=== PATIENT | male | born 1945 | race Caucasian/White ===

== ENCOUNTER 2019-01-13 02:59 | Emergency (ER) | payer MEDICARE, OTHER ==
[2019-01-13] MEDS ORDERED: Cocaine 4% TOPICAL* 4 ML TOP.SOLN RIGHT NARE ONE (03:09)
--- OUTSIDE RECORDS SUMMARY | 2019-01-13 03:09 | XMS REPORT | Continuity of Care Document ---
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 Active Problems Provider Date Mitral valve disorder Kory Beckford M.D., [facility], Onset: 01/29/2013 FASNC Paroxysmal ventricular tachycardia Kory Beckford M.D., [facility], Onset: 04/21 FASNC Mitral leaflet abnormality Ica ECHO Schedule Onset: 04/15/2015 Dyspnea Kory Beckford M.D., [facility], Onset: 04/20/2015 FASNC Other hypertrophic cardiomyopathy Kory Beckford M.D., [facility], Onset: 2016 FASNC Dizziness and giddiness Kory Beckford M.D., [facility], Onset: 10/21/2016 FASNC Chest pain Kory Beckford M.D., [facility], Onset: 08/04/2017 FASNC Paroxysmal atrial fibrillation Kory Beckford M.D., [facility], Onset: 2017 FASNC Atrial fibrillation Kory Beckford M.D., [facility], Onset: 02/14/2018 FASNC Thoracic aortic ectasia Kory Beckford M.D., [facility], Onset: 02/14/2018 FASNC Social History Type Date Description Comments Sex Unknown Tobacco Use Start: Unknown Never Smoked Cigarettes Smoking Status Reviewed: 02/14/18 Never Smoked Cigarettes ETOH Use Denies alcohol use Tobacco Use Start: Unknown Patient has never smoked Recreational Drug Use Never Used Drugs Exercise Type/Frequency Exercises rarely Allergies, Adverse Reactions, Alerts Active Allergies Reaction Severity Comments Date Nitrostat bradycardia per pt 04/20/2015 Inactive Allergies NKDA 01/23/2013 Medications Active Medications SIG Qnty Indications Ordering Date Provider Amoxicillin take 4 tablets by 4tabs Kory Steen 06/01/2018 500mg mouth 1 hour Vianney Beckford, Tablets before dental SANDHYA, PHAM procedure Xarelto 1 by mouth every 90tabs Kory Enio 12/01/2017 20mg Tablets day Vianney Beckford, SANDHYA, PHAM Magnesium Oxide -MG 1 by mouth every 90tabs Kory Steen 03/14/2017 Supplement day Vianney Beckford, 250mg SANDHYA, PHAM Tablets Toprol XL 1 by mouth every 90tabs Koryjulia Steen 03/13/2017 50mg Tablets day Vianney Beckford, ER 24HR PHAM ARTHUR Atorvastatin Calcium 1 by mouth every 90tabs Unknown 06/05/2013 day 10mg Tablets Potassium Chloride ER 2 by mouth every Unknown day 10Meq Tablets ER Medications Administered in Office Medication SIG Qnty Indications Ordering Provider Date Inj, Regadenoson, 0.1 MG Kory Enio Beckford M.D., 09/11/2017 Injection PHAM ARTHUR Technetium TC 99M Kory Beckford M.D., 09/11/2017 Tetrofosmin, Per Unit Dose PHAM ARTHUR Up To 40 Millicuries Injection Inj, Regadenoson, 0.1 MG Jalen Zhu M.D. 05/08/2015 Injection Inj, Regadenoson, 0.1 MG ÁNGEL Leonard 05/08/2015 Injection Technetium TC 99M Jalen Zhu M.D. 05/08/2015 Tetrofosmin, Per Unit Dose Up To 40 Millicuries Injection Technetium TC 99M ÁNGEL Leonard 05/08/2015 Tetrofosmin, Per Unit Dose Up To 40 Millicuries Injection Immunizations Description No Information Available Vital Signs Date Vital Result Comment 02/14/2018 1:47pm Height 64.25 inches 5'4.25" Weight 182.00 lb Heart Rate 68 /min BP Systolic Sitting 124 mmHg lue reg cuff BP Diastolic Sitting 80 mmHg lue reg cuff BP Systolic Standing 118 mmHg lue reg cuff BP Diastolic Standing 78 mmHg lue reg cuff BMI (Body Mass Index) 31.0 kg/m2 Ejection Fraction 65-70% echo. 07/10/17 01/23/2018 1:05pm Height 64.25 inches 5'4.25" Weight 182.00 lb Heart Rate 68 /min BP Systolic Sitting 124 mmHg reg adult cuff left arm BP Diastolic Sitting 84 mmHg reg adult cuff left arm BMI (Body Mass Index) 31.0 kg/m2 Ejection Fraction 50-55% 12-08-2017 Results Description No Information Available Procedures Date Code Description Status 10/19/2018 75564 Interrogation Implant Cardiovasc Monitor System Incl Completed Analysis Int 10/19/2018 41120 Interrogation Implant Cardiovasc Monitor System Incl Completed Analysis Int 10/19/2018 68245 Icd eval w/iterative adjment single lead Icd Completed 10/19/2018 56105 Icd eval w/iterative adjment single lead Icd Completed 09/18/2018 17898 Interrogation Device Eval Remote Up To 30 Days Completed Analysis,Rev,RP 09/18/2018 34824 Interrogation Device Eval Remote Up To 30 Days Completed Analysis,Rev,RP 09/18/2018 61713 Icd Eval Sing,Dual,Multi Lead Remote Recpt Transm Tech Rev Completed Tech S 09/18/2018 86541 Icd Eval Sing,Dual,Multi Lead Remote Recpt Transm Tech Rev Completed Tech S 09/18/2018 61006 Icd Check Remote Up To 90 Days Single,Dual,Multiple Lead Completed 09/18/2018 98214 Icd Check Remote Up To 90 Days Single,Dual,Multiple Lead Completed Medical Devices Description No Information Available Encounters Description No Information Available Assessments Date Code Description Provider 10/19/2018 I25.5 Ischemic cardiomyopathy Kory Beckford M.D., [facility] 10/19/2018 I25.5 Ischemic cardiomyopathy Ica Pacer Schedule 10/19/2018 Z95.810 Presence of automatic (implantable) Kory Beckford M.D., [facility], cardiac defibrillator [facility] 10/19/2018 Z95.810 Presence of automatic (implantable) Ica Pacer Schedule cardiac defibrillator 09/18/2018 I48.91 Unspecified atrial fibrillation Kory Beckford M.D., [facility] 09/18/2018 I48.91 Unspecified atrial fibrillation Remote Device Checks 09/18/2018 I25.5 Ischemic cardiomyopathy Kory Beckford M.D., [facility] 09/18/2018 I25.5 Ischemic cardiomyopathy Remote Device Checks 09/18/2018 Z95.810 Presence of automatic (implantable) Kory Beckford M.D., [facility], cardiac defibrillator [facility] 09/18/2018 Z95.810 Presence of automatic (implantable) Remote Device Checks cardiac defibrillator Plan of Treatment Future Appointment(s):12/25/2018 4:30 pm - Tasia Herrera MD at [facility]02/14/2018 - Kory Beckford M.D., [facility], [id number] Unspecified atrial fibrillationComments:As discussed, your heart seems to be stable. We will treat your heart with medications. Please walk for exercise. Please continue to keep your nose moist including use of a humidifier.Follow up:after echo in one year.I77.810 Thoracic aortic ectasiaNew Orders:Echocardiogram, Ordered: 02/14/18 Functional Status Description No Information Available Mental Status Description No Information Available Referrals Description No Information Available
--- NOTE | 2019-01-13 03:24 | ED ---
Throat Pain/Nasal Congestion - HPI Summary HPI Summary: This patient is a 73 year old M presenting to [facility] accompanied by with a chief complaint of right sided epistaxis since 2 hours ago today 01/13/19 that lasted longer than usual prompting visit. Symptoms aggravated by nothing. Symptoms alleviated by nothing. Patient reports taking Xarelto blood thinner for afib and reports nose bleeds everyday for years always on the right side. Pt reports past experience with ENT when his nostrils were plugged and could not eat, sleep, or breath. Pt reports that eventually packing came out when he sneezed. Pt currently getting cold. - History of Current Complaint Chief Complaint: EDEpistaxis Time Seen by Provider: 01/13/19 03:09 Hx Obtained From: Patient Onset/Duration: Lasting Hours, Still Present - Allergies/Home Medications Allergies/Adverse Reactions: Allergies Allergy/AdvReac Type Severity Reaction Status Date / Time nitroglycerin Allergy See Comment Verified 07/02/18 08:25 PMH/Surg Hx/FS Hx/Imm Hx Endocrine/Hematology History: Denies: Hx Diabetes, Hx Thyroid Disease, Hx Anemia Cardiovascular History: Reports: Hx Atrial Fibrillation, Hx Hypertension, Hx Pacemaker/ICD, Other Cardiovascular Problems/Disorders - Defibrillator, Leaky Aortic Valve Comment Only: Hx Congestive Heart Failure - cardiomyopathy Respiratory History: Denies: Hx Chronic Obstructive Pulmonary Disease (COPD) GI History: Denies: Hx Jaundice - Surgical History Surgery Procedure, Year, and Place: PT HAS A DEFIBRILATOR Infectious Disease History: No Infectious Disease History: Denies: Traveled Outside the [place] in Last 30 Days - Family History Known Family History: Positive: Cardiac Disease Negative: Respiratory Disease, Seizure Disorder - Social History Alcohol Use: None Hx Substance Use: No Substance Use Type: Reports: None Hx Tobacco Use: No Smoking Status (MU): Never Smoked Tobacco Review of Systems Negative: Fever Positive: Epistaxis All Other Systems Reviewed And Are Negative: Yes Physical Exam - Summary Physical Exam Summary: Appearance: Well-appearing, Well-nourished, lying in bed comfortable Skin: Warm, dry, no obvious rash Eyes: sclera anicteric, no conjunctival pallor ENT: After cleared of clots and anesthetized with cocaine small area of bleeding noted on septum and cauterized with silver nitrate and took its effect. Neck: deferred Respiratory: No signs of respiratory distress Cardiovascular: Appears well perfused, pulses are nml Abdomen: deferred Musculoskeletal: Moving all 4 extremities without obvious discomfort Neurological: Awake and alert, mentation is normal, speech is fluent and appropriate Psychiatric: affect is normal, does not appear anxious or depressed Triage Information Reviewed: Yes Vital Signs On Initial Exam: Initial Vitals Temp Pulse Resp BP Pulse Ox 96.4 F 93 18 141/111 98 01/13/19 03:00 01/13/19 03:00 01/13/19 03:00 01/13/19 03:00 01/13/19 03:00 Vital Signs Reviewed: Yes Procedures - Sedation Patient Received Moderate/Deep Sedation with Procedure: No Diagnostics - Vital Signs Vital Signs Temp Pulse Resp BP Pulse Ox 01/13/19 03:00 96.4 F 93 18 141/111 98 - Laboratory Lab Statement: Any lab studies that have been ordered have been reviewed, and results considered in the medical decision making process. Re-Evaluation - Re-Evaluation First Eval Re-Evaluation Time: 03:47 Comment: Pt's nose cauterized. EENT Course/Dx - Course Course Of Treatment: This patient is a 73 year old M presenting to [facility] accompanied by with a chief complaint of right sided epistaxis since 2 hours ago today 01/13/19 that lasted longer than usual. Patient reports taking Xarelto blood thinner for afib and reports nose bleeds everyday for years always on the right side. Pt reports past experience with ENT when his nostrils were plugged and eventually packing came out when he sneezed. Physical Exam Findings reveals no abnormalities except After cleared of clots and anesthetized with cocaine small area of bleeding noted on septum and cauterized with silver nitrate and took its effect. In the ED course the patient was given 1 applic Cocaine Hcl and 1 each Silver Nitrate/Potassium Nitrate. Patient will be discharged with dx epistaxis and follow up from Dr. Duffy, PCP, and Dr. Corrales. The patient is agreeable with this plan. - Diagnoses Provider Diagnoses: Epistaxis Discharge ED - Sign-Out/Discharge Documenting (check all that apply): Patient Departure - discharge - Discharge Plan Condition: Improved Disposition: HOME Patient Education Materials: Nosebleed (ED) Referrals: Ellne Duffy MD [Primary Care Provider] - Darren Corrales MD [Medical Doctor] - If Needed - Billing Disposition and Condition Condition: IMPROVED Disposition: Home - Attestation Statements Document Initiated by Scribe: Yes Documenting Scribe: Arianna Conklin Provider For Whom Vlad is Documenting (Include Credential): Dr. Chano Espinoza MD Scribe Attestation: I, Arianna Conklin, scribed for Dr. Chano Espinoza MD on 01/15/19 at 1832. Scribe Documentation Reviewed: Yes Provider Attestation: The documentation as recorded by the Arianna marks accurately reflects the service I personally performed and the decisions made by me, Dr. Chano Espinoza MD Status of Scribe Document: Viewed
[2019-01-13] MEDS ORDERED: Silver Nitrate/Potassium Nitr* 1 EA STICK ONE (03:49)
[2019-01-13] MEDS ORDERED: Silver Nitrate/Potassium Nitr* 1 EA STICK TOPICAL ONE (03:50)
[2019-01-13 04:25] VITALS: BP 126/73
== END 2019-01-13 04:20 | disposition home or self-care (01) ==
LOC: ED 02:59
DX: R04.0 Epistaxis (principal); I48.91 Unspecified atrial fibrillation; I11.0 Hypertensive heart disease with heart failure; I50.9 Heart failure, unspecified; Z95.810 Presence of automatic (implantable) cardiac defibrillator; Z79.01 Long term (current) use of anticoagulants; Z88.8 Allergy status to other drugs, medicaments and biological substances
CPT/HCPCS: 99282; A9270-GY